=== PATIENT | male | born 1940 | race Caucasian/White ===

== ENCOUNTER 2017-09-13 13:51 | Outpatient (CLI) | payer MEDICARE, OTHER ==
--- NOTE | 2017-09-13 18:31 | XRAY Report ---
LEFT HIP AND PELVIS: 09/13/2017 CLINICAL INDICATION: Pain. FINDINGS: Frontal view of the hips and pelvis and frogleg lateral view of the left hip demonstrate m oderate left hip osteoarthritis. There is no evidence of fracture or dislocation. No radiopaque for eign body is seen in the soft tissues. IMPRESSION: MODERATE LEFT HIP OSTEOARTHRITIS. JOB #: [id number] EXT JOB #:[id number]
--- NOTE | 2017-09-13 18:33 | XRAY Report ---
THREE VIEW LEFT FOOT: 09/13/2017 CLINICAL INDICATION: Pain. AP, lateral, oblique views of the left foot demonstrate moderate hallux valgus, with mild osteoarthri tis of the first metatarsophalangeal joint. No fracture or dislocation is seen. No radiopaque forei gn body is seen in the soft tissues. IMPRESSION: MODERATE HALLUX VALGUS, WITH MILD OSTEOARTHRITIS. JOB #: [id number] EXT JOB #:[id number]
--- NOTE | 2017-09-13 18:33 | XRAY Report ---
THREE-VIEW LEFT KNEE: 09/13/2017 CLINICAL INDICATION: Pain. FINDINGS: AP, lateral, sunrise views of the left knee demonstrate mild osteoarthritis, with small os teophytes. There is no evidence of acute fracture or dislocation. No effusion is present. IMPRESSION: MILD LEFT KNEE OSTEOARTHRITIS. JOB #: [id number] EXT JOB #:[id number]
== END 2017-09-13 13:52 | disposition home or self-care (01) ==
LOC: DI.N 13:51
PROVIDERS: ATTEND Internal Medicine
DX: M16.12 Unilateral primary osteoarthritis, left hip (principal); M17.12 Unilateral primary osteoarthritis, left knee; M19.072 Primary osteoarthritis, left ankle and foot; M20.12 Hallux valgus (acquired), left foot

== ENCOUNTER 2018-10-02 10:46 | Day surgery (SDC) | payer MEDICARE, OTHER ==
[~2018-10-02 10:46] MED LIST: LACTATED RINGERS 1,000 ML IV ONE
[2018-10-02] MEDS ORDERED: LIDO GARGLE 30 ML BOTTLE ONE (10:51)
[2018-10-02] MEDS ORDERED: MIDAZOLAM 2 MG/2 ML VIAL IVP ONE (12:16)
[2018-10-02] MEDS ORDERED: fentaNYL 100 MCG/2 ML VIAL IVP ONE (12:16)
[2018-10-02 13:06] VITALS: BP 105/59
== END 2018-10-02 10:47 | disposition home or self-care (01) ==
LOC: SDS 10:46
PROVIDERS: ATTEND Surgery
PROC: 0DB58ZX Excision of Esophagus, Via Natural or Artificial Opening Endoscopic, Diagnostic (ICD-10-PCS; principal; 2018-10-02 12:00)
DX: K22.70 Barrett's esophagus without dysplasia (principal); K21.9 Gastro-esophageal reflux disease without esophagitis; E78.5 Hyperlipidemia, unspecified; Z87.891 Personal history of nicotine dependence; K44.9 Diaphragmatic hernia without obstruction or gangrene
CPT/HCPCS: 43239; A9270; J7120

== ENCOUNTER 2019-08-15 11:04 | Outpatient (CLI) | payer MEDICARE, OTHER | END 2019-08-15 11:05 | disposition home or self-care (01) | LOC: DI 11:04 | PROVIDERS: ATTEND Internal Medicine | DX: Z01.810 Encounter for preprocedural cardiovascular examination (principal); Z01.818 Encounter for other preprocedural examination; M25.551 Pain in right hip; Z53.9 Procedure and treatment not carried out, unspecified reason ==

== ENCOUNTER 2019-08-15 11:49 | Outpatient (CLI) | payer MEDICARE, OTHER | END 2019-08-15 11:50 | disposition home or self-care (01) | LOC: RT 11:49 | PROVIDERS: ATTEND Orthopaedic Surgery | DX: Z01.810 Encounter for preprocedural cardiovascular examination (principal) | CPT/HCPCS: 93005 ==

== ENCOUNTER 2020-03-08 11:35 | Emergency (ER) | payer MEDICARE, OTHER ==
--- NOTE | 2020-03-08 11:48 | ED Physician Documentation ---
PD HPI CHEST PAIN - Stated complaint Stated Complaint: CHEST PX - Chief complaint Chief Complaint: Cardiac - History obtained from History obtained from: Patient - History of Present Illness Timing - onset: How many hours ago (9), Last night (He states he felt well going to bed. He woke up at 2:00 with a substernal chest discomfort that improved after being up and around and taking 2 aspirin. Lasted about a half an hour. He went back to sleep and was awoken with similar symptoms at 7 AM. He stayed awake at that time. The pain also dissipated after 15 or 20 minutes. He took 2 more aspirin at the time. He states since then he has been having just occasional fleeting sharp pains in the anterior to left chest lasting 1 to 5 seconds at a time and unassociated with breathing movement or swallowing. He had not eaten breakfast this morning.) Timing - details: Abrupt onset, Now resolved (The main discomfort he had left at 2 and 7 AM has not recurred and he has just intermittent brief sharp pains the remainder of this morning.) Quality: Aching, Sharp, Pain Location: Substernal, Left chest Radiation: No: Jaw, Neck, Back Improved by: ASA. No: Rest Worsened by: No: Inspiration, Movement, Palpation Associated symptoms: No: Shortness of air, Diaphoresis, Nausea, Feeling faint / dizzy, General Weakness, Palpitations, Cough Similar symptoms before: Has not had sx before Recently seen: Not recently seen (He had had chest pain episodes about 3 years ago and was referred to Dr. Simpson cardiology and had stress tests at that time which were normal. He sees Dr. Simpson yearly and had a visit with him and chest regular EKG several months ago.) Review of Systems Constitutional: denies: Fever, Chills Nose: denies: Rhinorrhea / runny nose, Congestion Throat: denies: Sore throat Cardiac: denies: Chest pain / pressure, Palpitations, Pedal edema, Calf pain Respiratory: reports: Dyspnea (He states he does do regular exercise in the last 2 to 3 weeks has noticed a bit more short of breath with activity than he had been previously. No chest pain per se.). denies: Cough, Hemoptysis, Wheezing GI: denies: Abdominal Pain, Nausea, Vomiting, Diarrhea, Bloody / black stool Musculoskeletal: denies: Neck pain, Back pain Neurologic: denies: Generalized weakness, Near syncope PD PAST MEDICAL HISTORY - Past Medical History Cardiovascular: High cholesterol, Murmur Respiratory: None Endocrine/Autoimmune: None GI: GERD, Other : Benign prostate hypertrophy HEENT: None Psych: None Musculoskeletal: None Derm: None - Past Surgical History Past Surgical History: Yes General: Cholecystectomy, Colonoscopy, EGD HEENT: Tonsil/Adenoidectomy - Present Medications Home Medications: Ambulatory Orders Medication Instructions Recorded Confirmed Tamsulosin [Flomax] 1 tab PO DAILY 01/08/16 03/08/20 Aspirin [Jennifer Chewable Aspirin] 81 mg PO DAILY 03/18/16 03/08/20 Ascorbic Acid [Vitamin C] 500 mg PO DAILY 09/29/18 03/08/20 Flaxseed Oil 1,300 mg PO DAILY 09/29/18 03/08/20 Multivitamin [Multiple Vitamins] 1 each PO DAILY 09/29/18 03/08/20 [place]-3/Dha/Epa/Fish Oil [Fish Oil 1 each PO DAILY 09/29/18 03/08/20 1,000 mg Softgel] Omeprazole 20 mg PO DAILY 09/29/18 03/08/20 Simvastatin 20 mg PO QPM 09/29/18 03/08/20 Calcium Carbonate [Calcium] 600 mg PO DAILY 03/08/20 03/08/20 Glucosamine HCl 1,500 mg PO DAILY 03/08/20 03/08/20 - Allergies Allergies/Adverse Reactions: Allergies Allergy/AdvReac Type Severity Reaction Status Date / Time No Known Drug Allergies Allergy Verified 03/08/20 11:40 - Social History Does the pt smoke?: No Smoking Status: Former smoker Does the pt drink ETOH?: Yes Does the pt have substance abuse?: No - Immunizations Immunizations are current?: Yes PD ED PE NORMAL - Vitals Vital signs reviewed: Yes - General General: Alert and oriented X 3, No acute distress - HEENT HEENT: Moist mucous membranes, Pharynx benign - Neck Neck: Supple, no meningeal sign, No adenopathy - Cardiac Cardiac: RRR, No murmur - Respiratory Respiratory: Clear bilaterally, Other (no chestwall tenderness) - Abdomen Abdomen: Soft, Non tender - Back Back: No CVA TTP - Derm Derm: Normal color, Warm and dry - Extremities Extremities: No deformity, Normal ROM s pain, No edema, No calf tenderness / cord - Neuro Neuro: Alert and oriented X 3, No motor deficit, Normal speech Results - Vitals Vitals: Vital Signs - 24 hr 03/08/20 03/08/20 03/08/20 11:40 11:51 12:21 Temperature 36.7 C Heart Rate 62 61 58 L Respiratory 22 16 18 Rate Blood Pressure 160/85 H 157/77 H 149/77 H O2 Saturation 99 98 96 03/08/20 12:47 Temperature Heart Rate 60 Respiratory 20 Rate Blood Pressure 143/80 H O2 Saturation 95 Oxygen O2 Source Room air - EKG (time done) 11:44 Rate: Rate (enter#) (68) Rhythm: NSR [place]: Normal Intervals: Normal [place] QRS: Normal Ischemia: Normal ST segments, Other (occ PVCs). No: ST elevation c/w ischemia, ST depression - Labs Labs: Laboratory Tests 03/08/20 03/08/20 03/08/20 11:40 11:40 11:40 WBC 6.3 RBC 4.92 Hgb 15.2 Hct 47.5 MCV 96.5 H MCH 30.9 MCHC 32.0 RDW 12.9 Plt Count 233 MPV 11.9 H Neut # (Auto) 4.1 Lymph # (Auto) 1.3 L [place] # (Auto) 0.8 Eos # (Auto) 0.0 Baso # (Auto) 0.0 Absolute Nucleated RBC 0.00 Nucleated RBC % 0.0 Sodium 136 Potassium 3.9 Chloride 103 Carbon Dioxide 25 Anion Gap 8.0 BUN 12 Creatinine 1.1 Estimated GFR (MDRD) 65 L Glucose 81 Calcium 9.4 Total Bilirubin 1.0 AST 31 ALT 32 Alkaline Phosphatase 99 Troponin I High Sens 3.3 B-Natriuretic Peptide Total Protein 7.9 Albumin 4.4 Globulin 3.5 Albumin/Globulin Ratio 1.3 Lipase 29 03/08/20 11:40 WBC RBC Hgb Hct MCV MCH MCHC RDW Plt Count MPV Neut # (Auto) Lymph # (Auto) [place] # (Auto) Eos # (Auto) Baso # (Auto) Absolute Nucleated RBC Nucleated RBC % Sodium Potassium Chloride Carbon Dioxide Anion Gap BUN Creatinine Estimated GFR (MDRD) Glucose Calcium Total Bilirubin AST ALT Alkaline Phosphatase Troponin I High Sens B-Natriuretic Peptide 54 Total Protein Albumin Globulin Albumin/Globulin Ratio Lipase - Rads (name of study) chest xray Radiology: Prelim report reviewed, See rad report (no acute process) Departure - Departure Disposition: 01 Home, Self Care Clinical Impression: Chest pain Qualifiers: Chest pain type: precordial pain Qualified Code(s): R07.2 - Precordial pain Condition: Stable Record reviewed to determine appropriate education?: Yes Instructions: ED Chest Pain Atypical Unkn Cause Follow-Up: Zoya Heredia MD [Primary Care Provider] - Arslan Simpson MD [Physician No Access] - Comments: Your EKG, chest x-ray, blood tests are normal. No signs of heart attack or heart failure or other significant cause at this time. It is unclear the cause of your pain. You can use some antacid such as Maalox or Mylanta with further episodes and see if that helps. Otherwise Tylenol if needed for discomfort. Follow-up with your primary care if recurrent episodes or return to the ER if more consistent or other symptoms. Regarding your symptoms of some shortness of breath with exercise, consider following up with Dr. Zuleika saleh to see if you would want to update your stress test to ensure no diminished blood flow to the heart. Discharge Date/Time: 03/08/20 13:05
[2020-03-08 11:52] LABS: BASOPHILS % (AUTO) 0.3 %; EOSINOPHILS % (AUTO) 0.6 %; HGB - HEMOGLOBIN 15.2 g/dL (14.0-18.0); LYMPHOCYTES # (AUTO) 1.3 10^3/uL (1.5-3.5); LYMPHOCYTES % (AUTO) 21.1 %; MEAN CORPUSCULAR HEMOGLOBIN 30.9 pg (27.0-31.0); MEAN CORPUSCULAR VOLUME 96.5 fL (80.0-94.0); MEAN PLATELET VOLUME 11.9 fL (7.4-11.4); MONOCYTES # (AUTO) 0.8 10^3/uL (0.0-1.0); MONOCYTES % (AUTO) 12.5 %; NEUTROPHILS # (AUTO) 4.1 10^3/uL (1.5-6.6); NEUTROPHILS % (AUTO) 65.2 %; PLT - PLATELET COUNT 233 10^3/uL (130-450); RED BLOOD COUNT 4.92 10^6/uL (4.70-6.10); RED CELL DISTRIBUTION WIDTH 12.9 % (12.0-15.0); WHITE BLOOD COUNT 6.3 x10^3/uL (4.8-10.8)
[2020-03-08 12:06] LABS: ALBUMIN 4.4 g/dL (3.2-5.5); ALBUMIN/GLOBULIN RATIO 1.3 (1.0-2.2); CALCIUM 9.4 mg/dL (8.5-10.3); CREATININE 1.1 mg/dL (0.6-1.2); TOTAL PROTEIN 7.9 g/dL (6.7-8.2)
[2020-03-08 12:48] VITALS: BP 143/80
[2020-03-08] MEDS: MAG HYDROX/AL HYDROX/SIMETH 30 ML UDC PO STA (12:48)
[2020-03-08] MEDS: LIDOCAINE VISCOUS 2% 15 ML UDC MM STA (12:48)
--- NOTE | 2020-03-08 12:48 | XRAY Report ---
Reason: Chest pain Procedure Date: 03/08/2020 Accession Number: [id number] / [id number] Procedure: XR - Chest 1 View X-Ray CPT Code: 46355 Final Report FULL RESULT: EXAM: CHEST RADIOGRAPHY EXAM DATE: 03/08/2020 12:03 PM. CLINICAL HISTORY: Chest pain. COMPARISON: XR CHEST PA AND LAT 11/01/2008 1:23 PM. TECHNIQUE: 1 view. FINDINGS: Lungs/Pleura: No focal opacities evident. No pleural effusion. No pneumothorax. Mediastinum: Heart size normal. Small to moderate hiatal hernia. No mediastinal shift. Other: None. IMPRESSION: 1. No acute process seen in the chest. 2. Small to moderate hiatal hernia. RADIA
== END 2020-03-08 13:05 | disposition home or self-care (01) ==
LOC: ED 11:35
DX: R07.2 Precordial pain (principal); R06.00 Dyspnea, unspecified; Z87.891 Personal history of nicotine dependence
CPT/HCPCS: 36415; 71045; 80053; 83690; 83880; 84484; 85025; 93005; 99284; A9270

== ENCOUNTER 2020-09-16 12:49 | Outpatient (CLI) | payer MEDICARE, OTHER ==
--- NOTE | 2020-09-16 15:37 | XRAY Report ---
PROCEDURE: Hip w/Pelvis 2-3V RT INDICATIONS: HTN, RT HIP ARTHRALGIA TECHNIQUE: AP pelvis with lateral view(s) of the bilateral hip(s). COMPARISON: None. FINDINGS: Bones: No fractures or dislocations. Pelvic ring appears intact. No suspicious bony lesions. Left hip arthroplasty is present without evidence of hardware fracture or periprosthetic loosening. Moder ate to severe right hip degenerative narrowing progressive compared to 2016. Small periarticular oste ophytes are present. Degenerative changes are present within the lower lumbar spine. Soft tissues: The visualized bowel gas pattern is normal. No suspicious soft tissue calcifications. IMPRESSION: Progressive appearance of osteoarthritis within the right hip as above. Reviewed by: Mamie Galvez MD on 09/16/2020 3:35 PM PDT Approved by: Mamie Galvez MD on 09/16/2020 3:35 PM PDT Station ID: [id number]
--- NOTE | 2020-09-16 17:17 | XRAY Report ---
PROCEDURE: Chest 2 View X-Ray INDICATIONS: HYPERTENSION TECHNIQUE: 2 view(s) of the chest. COMPARISON: Chest x-ray 03/08/2020 FINDINGS: Surgical changes and devices: None. Lungs and pleura: No pleural effusions or pneumothorax. Lungs are clear. Mediastinum: Mediastinal contours are normal. Heart size is normal. Bones and chest wall: No suspicious bony abnormalities. Soft tissues appear unremarkable. IMPRESSION: No acute pulmonary process. Reviewed by: Mamie Galvez MD on 09/16/2020 5:16 PM PDT Approved by: Mamie Galvez MD on 09/16/2020 5:16 PM PDT Station ID: [id number]
== END 2020-09-16 12:50 | disposition home or self-care (01) ==
LOC: DI 12:49
PROVIDERS: ATTEND Internal Medicine
DX: M16.11 Unilateral primary osteoarthritis, right hip (principal); I10 Essential (primary) hypertension; Z87.891 Personal history of nicotine dependence
CPT/HCPCS: 71046

== ENCOUNTER 2021-02-13 17:28 | Emergency (ER) | payer MEDICARE, OTHER ==
[2021-02-13] MEDS ORDERED: PROPARACAINE 0.5% OPHTH DROPS 15 ML EACHEYE STA (17:38)
[2021-02-13 17:45] VITALS: BP 144/76
--- NOTE | 2021-02-13 17:57 | ED Physician Documentation ---
PD HPI OPHTHO - Stated complaint Stated Complaint: LT EYE BLEEDING - Chief complaint Chief Complaint: Heent - History obtained from History obtained from: Patient - History of Present Illness Timing - onset: How many hours ago (1) Timing - duration: Hours (1) Timing - details: Abrupt onset Pain level max: 3 Pain level now: 2 Location: Left Quality / character: Aching Associated symptoms: Redness, Swelling Similar symptoms before: Has not had sx before Recently seen: Not recently seen - Additional information Additional information: 80-year-old male states that he was using a bungee cord today when it snapped backwards striking him in the left eye. He states no flashes. No floaters. No change in vision. He states there is bleeding in the left eye. Review of Systems Constitutional: denies: Fever, Chills Eyes: denies: Loss of vision, Decreased vision GI: denies: Vomiting, Diarrhea Skin: denies: Rash Musculoskeletal: denies: Neck pain, Back pain Neurologic: denies: Headache PD PAST MEDICAL HISTORY - Past Medical History Past Medical History: Yes Cardiovascular: High cholesterol, Murmur Respiratory: None Neuro: None Endocrine/Autoimmune: None GI: GERD, Other : Benign prostate hypertrophy HEENT: None Psych: None Musculoskeletal: None Derm: None - Past Surgical History Past Surgical History: Yes General: Cholecystectomy, Colonoscopy, EGD Ortho: Hip replacement HEENT: Tonsil/Adenoidectomy - Present Medications Home Medications: Ambulatory Orders Medication Instructions Recorded Confirmed Tamsulosin [Flomax] 1 tab PO DAILY 01/08/16 03/08/20 Aspirin [Jennifer Chewable Aspirin] 81 mg PO DAILY 03/18/16 03/08/20 Ascorbic Acid [Vitamin C] 500 mg PO DAILY 09/29/18 03/08/20 Flaxseed Oil 1,300 mg PO DAILY 09/29/18 03/08/20 Multivitamin [Multiple Vitamins] 1 each PO DAILY 09/29/18 03/08/20 [place]-3/Dha/Epa/Fish Oil [Fish Oil 1 each PO DAILY 09/29/18 03/08/20 1,000 mg Softgel] Omeprazole 20 mg PO DAILY 09/29/18 03/08/20 Simvastatin 20 mg PO QPM 09/29/18 03/08/20 Calcium Carbonate [Calcium] 600 mg PO DAILY 03/08/20 03/08/20 Glucosamine HCl 1,500 mg PO DAILY 03/08/20 03/08/20 Timolol 0.5% Ophth Drops [Timoptic 1 drops LEFTEYE BID #5 ml 02/13/21 0.5% Ophth Drops] - Allergies Allergies/Adverse Reactions: Allergies Allergy/AdvReac Type Severity Reaction Status Date / Time No Known Drug Allergies Allergy Verified 02/13/21 17:33 - Social History Does the pt smoke?: No Smoking Status: Never smoker Does the pt drink ETOH?: Yes Does the pt have substance abuse?: No - Immunizations Immunizations are current?: Yes - POLST Patient has POLST: No PD ED PE NORMAL - Vitals Vital signs reviewed: Yes - General General: Alert and oriented X 3, No acute distress - HEENT HEENT: Moist mucous membranes - Neck Neck: Supple, no meningeal sign - Derm Derm: Warm and dry - Neuro Neuro: Alert and oriented X 3 - Free text exam Free text exam: Examination of the left eye reveals a subconjunctival hemorrhage to the inferior aspect of the left eye. Intraocular pressure is 32. Intraocular pressure on the right eye is 18. There is a very small hyphema on the left eye. Unable to fully visualize the fundus, but appears grossly normal. Patient's vision is normal after Proparacaine. No abnormal fluorescein uptake. Results - Vitals Vitals: Vital Signs - 24 hr 02/13/21 02/13/21 17:34 17:36 Temperature 37.0 C 37.0 C Heart Rate 76 76 Respiratory 18 18 Rate Blood Pressure 144/75 H 144/76 H O2 Saturation 98 98 Oxygen O2 Source Room air PD MEDICAL DECISION MAKING - ED course Complexity details: considered differential, d/w patient, d/w b2b sales consultant ED course: 80-year-old male presents to the emergency department with a left s ubconjunctival hemorrhage and a very small traumatic hyphema. Mildly elevated intraocular pressure. Normal vision. Discussed the case with Dr. Maher, ophthalmology who recommends timolol eyedrops twice a day and follow-up in the clinic on Tuesday. Patient is not on anticoagulants. Patient counseled regarding signs and symptoms for which I believe and urgent re-evaluation would be necessary. Patient with good understanding of and agreement to plan and is comfortable going home at this time This document was made in part using voice recognition software. While efforts are made to proofread this document, sound alike and grammatical errors may occur. Departure - Departure Disposition: 01 Home, Self Care Clinical Impression: Subconjunctival hemorrhage Qualifiers: Laterality: left Qualified Code(s): H11.32 - Conjunctival hemorrhage, left eye Traumatic hyphema of left eye Qualifiers: Encounter type: initial encounter Qualified Code(s): S05.12XA - Contusion of eyeball and orbital tissues, left eye, initial encounter Condition: Good Instructions: ED Eye Injury Hyphema, ED Eye Injury Subconj Hemorrhage Follow-Up: Iglesia Maher MD [Provider Admit Priv/Credential] - 02/16/21 Prescriptions: Timolol 0.5% Ophth Drops [Timoptic 0.5% Ophth Drops] 1 drops LEFTEYE BID #5 ml Comments: Use the timolol eyedrops twice a day. You can also use artificial tears for your left eye. Dr. Maher will see you on Tuesday in his office. Return sooner if you worsen. Stop your aspirin until told to resume by Dr. Maher. Discharge Date/Time: 02/13/21 18:07
== END 2021-02-13 18:07 | disposition home or self-care (01) ==
LOC: ED 17:28
DX: S05.12XA Contusion of eyeball and orbital tissues, left eye, initial encounter (principal); H11.32 Conjunctival hemorrhage, left eye; W20.8XXA Other cause of strike by thrown, projected or falling object, initial encounter; Z79.82 Long term (current) use of aspirin
CPT/HCPCS: 99282; 99284; J3490

== ENCOUNTER 2021-09-11 08:51 | Day surgery (SDC) | payer MEDICARE, OTHER ==
[2021-09-11] MEDS ORDERED: LACTATED RINGERS 1,000 ML IV ONE (09:04)
--- NOTE | 2021-09-11 09:32 | ANESTHESIA ---
Pre-Anesthesia VS, & Labs - Diagnosis Jones's and screening - Procedure EGD, Colonoscopy Vital Signs: Temp Pulse Resp BP Pulse Ox 36.3 C L 76 18 126/78 98 09/11/21 09:05 09/11/21 09:05 09/11/21 09:05 09/11/21 09:05 09/11/21 09:05 Height: 5 ft 8 in Weight (kg): 78.7 kg Body Mass Index: 26.4 BMI Classification: Overweight - NPO >8 hours Home Medications and Allergies Tamsulosin [Flomax] 1 tab PO DAILY 01/08/16 Aspirin [Jennifer Chewable Aspirin] 81 mg PO DAILY 03/18/16 Ascorbic Acid [Vitamin C] 500 mg PO DAILY 09/29/18 Flaxseed Oil 1,300 mg PO DAILY 09/29/18 Multivitamin [Multiple Vitamins] 1 each PO DAILY 09/29/18 [place]-3/Dha/Epa/Fish Oil [Fish Oil 1,000 mg Softgel] 1 each PO DAILY 09/29/18 Omeprazole 20 mg PO DAILY 09/29/18 Simvastatin 20 mg PO QPM 09/29/18 Calcium Carbonate [Calcium] 600 mg PO DAILY 03/08/20 Glucosamine HCl 1,500 mg PO DAILY 03/08/20 Allergies/Adverse Reactions: Allergies Allergy/AdvReac Type Severity Reaction Status Date / Time No Known Drug Allergies Allergy Verified 02/13/21 17:33 Anes History & Medical History - Anesthetic History Anesthesia Complications: reports: No previous complications Family history of Anesthesia Complications: Denies Family history of Malignant Hyperthermia: Denies - Medical History Cardiovascular: reports: High cholesterol, Murmur Pulmonary: reports: None Gastrointestinal: reports: GERD, Other Urinary: reports: Benign prostate hypertrophy Neuro: reports: None Musculoskeletal: reports: None Endocrine/Autoimmune: reports: None Blood Disorders: reports: None Skin: reports: None Smoking Status: Never smoker - Surgical History General: reports: Cholecystectomy, Colonoscopy, EGD Eyes Ears Nose Throat (EENT): reports: Tonsil/Adenoidectomy Orthopedic: reports: Hip replacement Exam General: Alert, Oriented x3, Cooperative Dental: WNL Mouth Openin Fingerbreadth Neck Mobility: Normal Mallampati classification: II Respiratory: Lungs clear Cardiovascular: Regular rate Plan Anesthesia Type: Total IV Consent for Procedure(s) Verified and Reviewed: Yes Code Status: Attempt Resuscitation ASA classification: 2-Mild systemic disease Is this case an emergency?: No
--- NOTE | 2021-09-11 10:02 | HISTORY & PHYSICAL EXAMINATION ---
Chief Complaint - Chief Complaint Chief Complaint: history of barretts esophagus History of Present Illness - History Obtained From Records Reviewed: yes History obtained from: pt Exam Limitations: none - History of Present Illness HPI Comment/Other: history of barretts esophagus. no recent colon cancer screening History - Past Medical History Cardiovascular: reports: None (10 pt ros as above otherwise unremarkable), High cholesterol, Murmur Respiratory: reports: None Neuro: reports: None Endocrine/Autoimmune: reports: None GI: reports: GERD, Other : reports: Benign prostate hypertrophy HEENT: reports: None Psych: reports: None Musculoskeletal: reports: None Derm: reports: None MRSA Hx?: No - Past Surgical History General: reports: Cholecystectomy, Colonoscopy, EGD Ortho: reports: Hip replacement HEENT: reports: Tonsil/Adenoidectomy - POLST Patient has POLST: No Meds/Allgy - Home Medications Home Medications: Ambulatory Orders Medication Instructions Recorded Confirmed Tamsulosin [Flomax] 1 tab PO DAILY 01/08/16 09/10/21 Aspirin [Jennifer Chewable Aspirin] 81 mg PO DAILY 03/18/16 09/10/21 Ascorbic Acid [Vitamin C] 500 mg PO DAILY 09/29/18 09/10/21 Flaxseed Oil 1,300 mg PO DAILY 09/29/18 09/10/21 Multivitamin [Multiple Vitamins] 1 each PO DAILY 09/29/18 09/10/21 [place]-3/Dha/Epa/Fish Oil [Fish Oil 1 each PO DAILY 09/29/18 09/10/21 1,000 mg Softgel] Omeprazole 20 mg PO DAILY 09/29/18 09/10/21 Simvastatin 20 mg PO QPM 09/29/18 09/10/21 Calcium Carbonate [Calcium] 600 mg PO DAILY 03/08/20 09/10/21 Glucosamine HCl 1,500 mg PO DAILY 03/08/20 09/10/21 - Allergies Allergies/Adverse Reactions: Allergies Allergy/AdvReac Type Severity Reaction Status Date / Time No Known Drug Allergies Allergy Verified 02/13/21 17:33 Exam - Vital Signs Reviewed Vital Signs: Yes Vital Signs: Vital Signs x48h Temp Pulse Resp BP Pulse Ox 09/11/21 09:05 36.3 C L 76 18 126/78 98 - Physical Exam General Appearance: positive: No acute distress, Alert Eyes Bilateral: positive: PERRL, EOMI, No scleral icterus ENT: positive: No signs of dehydration Neck: positive: No JVD Respiratory: positive: No respiratory distress, Breath sounds nml Cardiovascular: positive: Regular rate & rhythm Abdomen: positive: Non-tender, No distention Neurologic/Psychiatric: positive: Oriented x3 Conclusion/Plan - Problem List (1) Barretts esophagus Conclusion/Plan: plan egd with biopsies. no recent colon cancer screening. plan colonoscopy parq held and consent obtained
[2021-09-11] MEDS ORDERED: LACTATED RINGERS 200 ML IV ONE (11:16)
[2021-09-11 11:28] VITALS: BP 126/68
--- NOTE | 2021-09-11 15:26 | ANESTHESIA POST OP EVALUATION ---
Anesthesia Post Eval - Post Anesthesia Eval Vitals: Last Vital Signs Temp 35.9 C L 09/11/21 11:26 Pulse 60 09/11/21 11:26 Resp 17 09/11/21 11:26 BP 126/68 09/11/21 11:26 Pulse Ox 97 09/11/21 11:26 CV Function Including HR & BP: Stable Pain Control: Satisfactory Nausea & Vomiting: Negative Mental Status: Baseline Respiratory Status: Airway Patent Hydration Status: Satisfactory Anesthesia Complications: None
== END 2021-09-11 08:52 | disposition home or self-care (01) ==
LOC: SDS 08:51
PROVIDERS: ATTEND Surgery
PROC: 0DB38ZX Excision of Lower Esophagus, Via Natural or Artificial Opening Endoscopic, Diagnostic (ICD-10-PCS; 2021-09-11)
PROC: 0DBN8ZZ Excision of Sigmoid Colon, Via Natural or Artificial Opening Endoscopic (ICD-10-PCS; principal; 2021-09-11 10:15)
PROC: 0DB48ZX Excision of Esophagogastric Junction, Via Natural or Artificial Opening Endoscopic, Diagnostic (ICD-10-PCS; 2021-09-11 10:15)
DX: Z12.11 Encounter for screening for malignant neoplasm of colon (principal); K22.70 Barrett's esophagus without dysplasia; D12.5 Benign neoplasm of sigmoid colon; K57.30 Diverticulosis of large intestine without perforation or abscess without bleeding; K21.9 Gastro-esophageal reflux disease without esophagitis; N40.0 Benign prostatic hyperplasia without lower urinary tract symptoms; E78.00 Pure hypercholesterolemia, unspecified; R01.1 Cardiac murmur, unspecified; Z79.82 Long term (current) use of aspirin; Z79.899 Other long term (current) drug therapy; K44.9 Diaphragmatic hernia without obstruction or gangrene
CPT/HCPCS: 43239; 45385; J7120

== ENCOUNTER 2022-08-19 06:07 | Day surgery (SDC) | payer MEDICARE, OTHER ==
[2022-08-19] MEDS ORDERED: PROPARACAINE 0.5% OPHTH DROPS 15 ML ONE (06:10)
[2022-08-19] MEDS ORDERED: KETOROLAC 0.45% OPHTH DROPS ONE (06:11)
[2022-08-19] MEDS ORDERED: PHENYLEPHRINE 2.5% OPHTH 2 ML DROPS ONE (06:11)
[2022-08-19] MEDS ORDERED: CYCLOPENTOLATE 1% OPHTH DROPS 2 ML ONE (06:11)
[2022-08-19] MEDS ORDERED: LACTATED RINGERS 1,000 ML IV ONE ×2 (06:13→07:54)
[2022-08-19] MEDS ORDERED: TIMOLOL 0.5% OPHTH DROPS ONE (07:16)
[2022-08-19] MEDS ORDERED: BRIMONIDINE 0.2% OPHTH DROPS 5 ML ONE (07:16)
[2022-08-19] MEDS ORDERED: TRIAMCIN/MOXIFLOX OPHTHALMIC 0.6 ML VIAL IO ONE ×2 (07:16→07:41)
[2022-08-19] MEDS ORDERED: EPINEPHrine 1 MG/ML AMP ONE (07:16)
[2022-08-19] MEDS ORDERED: VANCOMYCIN OPHTH (TOPICAL) 10 MG/ML SYRINGE ONE (07:17)
[2022-08-19] MEDS ORDERED: BSS/LIDOCAINE/EPINEPHRINE 1 ML VIAL ONE (07:17)
--- NOTE | 2022-08-19 07:19 | ANESTHESIA ---
Pre-Anesthesia VS, & Labs - Diagnosis cataract - Procedure cataract extraction Vital Signs: Temp Pulse Resp BP Pulse Ox O2 Flow Rate 36.3 C L 66 18 134/58 H 100 08/19/22 06:18 08/19/22 06:18 08/19/22 06:18 08/19/22 06:18 08/19/22 06:18 Height: 5 ft 8 in Weight (kg): 77 kg Body Mass Index: 25.8 BMI Classification: Overweight - NPO >8 hours Home Medications and Allergies Tamsulosin [Flomax] 1 tab PO DAILY 01/08/16 Aspirin [Jennifer Chewable Aspirin] 81 mg PO DAILY 03/18/16 Ascorbic Acid [Vitamin C] 500 mg PO DAILY 09/29/18 Multivitamin [Multiple Vitamins] 1 each PO DAILY 09/29/18 [place]-3/Dha/Epa/Fish Oil [Fish Oil 1,000 mg Softgel] 1 each PO DAILY 09/29/18 Omeprazole 20 mg PO DAILY 09/29/18 Simvastatin 20 mg PO QPM 09/29/18 Calcium Carbonate [Calcium] 600 mg PO DAILY 03/08/20 glucosamine HCL [Glucosamine HCl] 1,500 mg PO DAILY 03/08/20 Acetaminophen [Pain Relief Extra Strength] 1 tab PO PRN PRN 07/22/22 Ibuprofen 1 tab PO PRN PRN 07/22/22 Allergies/Adverse Reactions: Allergies Allergy/AdvReac Type Severity Reaction Status Date / Time No Known Drug Allergies Allergy Verified 07/21/22 13:34 Anes History & Medical History - Anesthetic History Anesthesia Complications: reports: No previous complications - Medical History Cardiovascular: reports: None, High cholesterol, Murmur Pulmonary: reports: None Gastrointestinal: reports: GERD, Other Urinary: reports: Benign prostate hypertrophy Neuro: reports: None Musculoskeletal: reports: None Endocrine/Autoimmune: reports: None Blood Disorders: reports: None Skin: reports: None Smoking Status: Never smoker History of Cancer?: No - Surgical History General: reports: Cholecystectomy, Colonoscopy, EGD Eyes Ears Nose Throat (EENT): reports: Cataracts, Tonsil/Adenoidectomy Orthopedic: reports: Hip replacement Exam General: Alert, Oriented x3 Dental: WNL Mallampati classification: III Thyromental Distance: greater than 6 cm Respiratory: Lungs clear Cardiovascular: Regular rate Plan Anesthesia Type: MAC Consent for Procedure(s) Verified and Reviewed: Yes Code Status: Attempt Resuscitation ASA classification: 2-Mild systemic disease Is this case an emergency?: No
[2022-08-19] MEDS ORDERED: MIDAZOLAM 2 MG/2 ML VIAL ONE (07:38)
[2022-08-19] MEDS ORDERED: BRIMONIDINE 0.2% OPHTH DROPS 5 ML OPTH ONE (07:39)
[2022-08-19] MEDS ORDERED: TIMOLOL 0.5% OPHTH DROPS OPTH ONE (07:40)
[2022-08-19] MEDS ORDERED: BSS/LIDOCAINE/EPINEPHRINE 1 ML SYRINGE IO ONE (07:40)
[2022-08-19] MEDS ORDERED: EPINEPHrine 1 MG/ML AMP IR ONE (07:40)
[2022-08-19] MEDS ORDERED: PROPARACAINE 0.5% OPHTH DROPS 15 ML EACHEYE ONE (07:41)
[2022-08-19] MEDS ORDERED: VANCOMYCIN OPHTH (TOPICAL) 10 MG/ML SYRINGE TOP ONE (07:41)
--- NOTE | 2022-08-19 08:08 | OPERATIVE REPORT ---
Operative Report - Other Other Information/Narrative: Date of Surgery: 08/19/22 Preop Dx: Visually significant cataract right eye. Cataract surgery was performed in the left eye on [id number]. Postop Dx: Same Procedure: Phacoemulsification with posterior chamber intraocular lens implant right eye Surgeon: Dr. Iglesia Maher Anesthesia: Monitored anesthesia care Complications: None Operative Indications: This is a 82-year-old M with progressive vision loss in the right eye due to 2+ nuclear sclerotic and 1+ posterior subcapsular cataract. Best corrected visual acuity was 20/25 with glare to 20/100 vision in the right eye. Indications for surgery were: - Overall decrease in vision - Difficulty seeing words on a computer screen - Difficulty seeing words, closed captions, or game scores on TV - Difficulty seeing street signs - Difficulty driving in low light or at night - Difficulty driving at night because of headlights from other vehicles - Difficulty with glare or bright lights in any situation - Difficulty tracking a golf ball - Decreased acuity with firearms The patient was consented at length concerning the risks and benefits of cataract surgery after which the patient expressed a desire to proceed with surgery. Operative Procedure: The patient was taken into OR#3 and placed under monitored anesthesia care. A surgical time-out was conducted confirming correct patient, correct procedure, and correct surgical site. The patient was given topical anesthesia and then prepped and draped in the usual sterile fashion. The eye was entered at the 6 and 3 oclock positions. Intracameral Shugarcaine was injected into the anterior chamber followed by a dispersive viscoelastic. A continuous-tear curvilinear capsulorhexis was performed. The nucleus was hydrodissected and phacoemulsified. The cortex was evacuated using automated infusion and aspiration. A cohesive viscoelastic was injected into the capsular bag and a 21.0 diopter intraocular lens was inserted into the bag. Infusion and aspiration were used to evacuate the viscoelastic materials from the eye. The wounds were hydrated and the eye inflated to physiologic pressure using balanced salt solution. Approximately 0.25ml of a mixture of triamcinolone and moxifloxacin was injected trans-sclerally into the vitreous in the inferotemporal quadrant using a 30 gauge cannula. An additional 0.55ml of a mixture of triamcinolone and moxifloxacin was injected subconjunctivally in the superior quadrant for infection and inflammation prophylaxis. Wound integrity was checked with Weck-Anjelica sponges. The patient was taken from the operating room in good condition and given post-op instructions.
[2022-08-19 08:17] VITALS: BP 108/64
--- NOTE | 2022-08-19 08:58 | ANESTHESIA POST OP EVALUATION ---
Anesthesia Post Eval - Post Anesthesia Eval Vitals: Last Vital Signs Temp 36.5 C 08/19/22 08:15 Pulse 55 L 08/19/22 08:15 Resp 16 08/19/22 08:15 BP 108/64 08/19/22 08:15 Pulse Ox 99 08/19/22 08:15 O2 Flow Rate CV Function Including HR & BP: Stable Pain Control: Satisfactory Nausea & Vomiting: Negative Mental Status: Baseline Respiratory Status: Airway Patent Hydration Status: Satisfactory Anesthesia Complications: None
== END 2022-08-19 06:08 | disposition home or self-care (01) ==
LOC: SDS 06:07
PROVIDERS: ATTEND Ophthalmology
DX: H25.811 Combined forms of age-related cataract, right eye (principal); Z96.1 Presence of intraocular lens; Z98.42 Cataract extraction status, left eye
CPT/HCPCS: 66984; A9270; J3490; J7120

== ENCOUNTER 2023-07-11 12:53 | Outpatient (CLI) | payer MEDICARE, OTHER | END 2023-07-11 12:54 | disposition home or self-care (01) | LOC: DI 12:53 | PROVIDERS: ATTEND Internal Medicine | DX: Z53.9 Procedure and treatment not carried out, unspecified reason (principal) ==

== ENCOUNTER 2023-07-13 14:53 | Outpatient (CLI) | payer MEDICARE, OTHER ==
--- NOTE | 2023-07-13 21:11 | XRAY Report ---
PROCEDURE: Foot 3 View LT INDICATIONS: FOOT PAIN TECHNIQUE: 3 views of the foot were acquired. COMPARISON: None. FINDINGS: Bones: No fractures or dislocations. No suspicious bony lesions. Hallux valgus noted to. Soft tissues: No suspicious soft tissue calcifications or masses. IMPRESSION: Hallux valgus. No fracture. Reviewed by: Jorge Bhatti MD on 07/13/2023 8:09 PM HECTOR Approved by: Jorge Bhatti MD on 07/13/2023 8:09 PM HECTOR Station ID: [id number]
== END 2023-07-13 14:54 | disposition home or self-care (01) ==
LOC: DI 14:53
PROVIDERS: ATTEND Internal Medicine
DX: M20.12 Hallux valgus (acquired), left foot (principal)